=== PATIENT | male | born 1995 | race African-American/Black ===

== ENCOUNTER 2023-05-04 03:55 | Emergency (ER) | payer OTHER ==
[~2023-05-04] VITALS: Ht 180.3 cm; Wt 90.0 kg
[2023-05-04 04:04] VITALS: BP 137/83
== END 2023-05-04 04:42 | disposition left against medical advice (07) ==
LOC: ER 03:55
DX: Z53.21 Procedure and treatment not carried out due to patient leaving prior to being seen by health care provider (principal)
CPT/HCPCS: 99281; Z7610